=== PATIENT | female | born 1960 | race Caucasian/White ===

== ENCOUNTER 2017-11-13 19:21 | Emergency (ER) | payer SELFPAY, OTHER | END 2017-11-13 21:27 | disposition left against medical advice (07) | LOC: FTE 19:21 | DX: Z53.21 Procedure and treatment not carried out due to patient leaving prior to being seen by health care provider (principal) ==

== ENCOUNTER 2017-12-15 06:46 | Emergency (ER) | payer SELFPAY | END 2017-12-15 07:52 | disposition home or self-care (01) | LOC: E/R 06:46 | DX: Z59.0 Homelessness (principal); T73.0XXA Starvation, initial encounter; F17.210 Nicotine dependence, cigarettes, uncomplicated; Z00.00 Encounter for general adult medical examination without abnormal findings | CPT/HCPCS: 99282 ==

== ENCOUNTER 2018-04-23 22:34 | Emergency (ER) | payer SELFPAY, OTHER | END 2018-04-23 23:36 | disposition left against medical advice (07) | LOC: FTE 22:34 | DX: Z53.21 Procedure and treatment not carried out due to patient leaving prior to being seen by health care provider (principal) ==